=== PATIENT | female | born 1980 | race African-American/Black ===

== ENCOUNTER 2017-04-09 11:31 | Emergency (ER) | payer OTHER ==
[2017-04-09 11:41] VITALS: BP 137/84; BMI 56.3
--- NOTE | 2017-04-09 11:54 | DR.GENAD ---
HPI - PCP Primary Care Physician: BOUBACAR - HPI Comment HPI Comment: NO FEVER. PATIENT DENIES N/V. FULLY ALERT AND CONSCIOUS IN ED. - Complaint/Symptoms Chief Complaint Doctors Comments: PATIENT SAID HER BOYFRIEND DIANA SHE PASS OUT AND HE CALL 911. COMPLAINIG OF HEADACHE. HISTORY SEIZURE EPISODE ONE IN THE PASS. SHE WAS SHAKING PER HER BOYFRIEND. SHE FELL AND HIT HER HEAD THIS MORNING. Chief Complaint:: patient stated she fell this morning by her bed and landed on the back of her head. - Nurses notes reviewed Nurses Notes Review: Yes - Source History Provided: Patient - Mode of Arrival Mode of Arrival: EMS - Timing Onset of Chief Complaint: 04/09/17 Came on: Suddenly - Duration Duration: Since Onset Duration: Minutes - Severity Severity: Moderate PMH - PMH Past Medical History: Yes Past Medical History: CHF, Coronary Artery Disease, GERD, Hypertension Past Surgical History: Yes Surgical History: [employer] Surgery, Hysterectomy - Family History History of Family Medical Conditions: Yes Family Medical History: Hypertension - Social History Does patient currently use any type of tobacco product: Yes Have you used tobacco products in the last 12 months: Yes Type of Tobacco Use: Cigarettes How many years tobacco product used: 20 Does any household member use tobacco: Yes Alcohol Use: None Do you use any recreational Drugs:: No Lives With: Family Lives Where: Home - infectious screening In the last 2 months have you had wt loss of >10#?: NO Have you had fever, night sweats or hemotysis?: No Have you traveled outside the country in the last 6 months?: No Isolation: Standard ROS - Review of Systems Constitutional: Weakness, Fatigue. negative: Chills, Fever Eyes: Blurred Vision ENTM: No Symptoms Reported. negative: Ear Pain, Nose Discharge, Nose Congestion , Throat Pain Respiratoy: Short of Breath. negative: Productive Cough, Non-Productive Cough, Wheezing, Hemoptysis Cardiovascular: No Symptoms Reported. negative: Chest Pain, Edema, Palpitations Gastrointestinal/Abdominal: negative: Abdominal Pain, Nausea, Vomiting Genitourinary: negative: Dysuria, Frequency, Hematuria Neurological: Headache, Weakness, Dizziness Musculoskeletal: Muscle Pain Hematologic/Lymphatic: No Symptoms Reported Endocrine: No Symptoms Reported All Other Systems: Reviewed and Negative PE - Vital Signs Vitals: Temperature 98.1 F Pulse Rate 78 Respiratory Rate 16 Blood Pressure 137/84 O2 Sat by Pulse Oximetry 99 - General Limitations: No Limitations General Appearance: Alert - Head Head Exam: Normal Inspection - Eyes Eye exam: Normal Appearance - ENT ENT Exam: Normal External Ear Exam External Ear Exam: Normal External Inspection TM/Canal Exam: Bilateral Normal Nose Exam: Normal Nose Exam Mouth Exam: Normal Inspection Throat Exam: Normal Inspection - Neck Neck Exam: Normal Inspection, Trachea Midline - Chest Chest Inspection: Symmetric Chest Wall Rise - Respiratory Respiratory Exam: Normal Lung Sounds Bilat Respiratory Exam: Bilateral Clear to Auscultation - Cardiovascular Cardiovascular Exam: Regular Rate, Normal Rhythm, Normal Heart Sounds - Abdominal Exam Abdominal Exam: Normal Bowel Sounds, Soft. negative: Tenderness - Extremities Extremities Exam: Normal Inspection - Back Back Exam: Normal Inspection - Neurologic Neurological Exam: Alert, Oriented X3, CN II-XII Intact, Normal Gait, Reflexes Normal. negative: Motor Sensory Deficit - Psychiatric Psychiatric Exam: Normal Affect, Normal Mood - Skin Skin Exam: Normal Color MDM - Additional Information Additional Information Obtained From: Family - Differential Diagnosis Differential Diagnosis: AMS, SYNCOPAL EPISODE, SEIZURE, NH, CVA, TIA Course - Treatment Treatment: SEE ORDERS. - Education/Counseling Education/Counseling: Patient, Family, Education Educated On: Diagnosis, Needs for Follow Up ROR - Labs Reviewed Laboratory Results Reviewed?: Yes Result Diagrams: 04/09/17 12:00 04/09/17 12:00 Laboratory: WBC 14.2 X10^3/uL (3.6-10.0) H 04/09/17 12:00 RBC 5.20 X10^6/uL (3.5-5.4) 04/09/17 12:00 Hgb 13.3 g/dL (12.0-16.0) 04/09/17 12:00 Hct 39.8 % (36.0-47.0) 04/09/17 12:00 MCV 76.5 fL (80.0-100.0) L 04/09/17 12:00 MCH 25.5 pg (27.0-34.0) L 04/09/17 12:00 MCHC 33.4 g/dL (33.0-35.0) 04/09/17 12:00 RDW 16.9 % (11.6-16.5) H 04/09/17 12:00 Plt Count 251 X10^3/uL (150.0-450.0) 04/09/17 12:00 Plt Count Comment Adequate (ADEQUATE) 04/09/17 12:00 MPV 9.0 fL (7.4-11.0) 04/09/17 12:00 Neut % 76.4 % (42.0-75.0) H 04/09/17 12:00 Lymph % 18.5 % (21.0-51.0) L 04/09/17 12:00 [place] % 2.8 % (0.0-13.0) 04/09/17 12:00 Eos % 1.7 % (0.9-2.9) 04/09/17 12:00 Baso % 0.6 % (0.2-1.0) 04/09/17 12:00 Neut # 10.9 x10^3/uL (2.2-4.8) H 04/09/17 12:00 Lymph # 2.6 X10^3/uL (1.3-2.9) 04/09/17 12:00 [place] # 0.4 x10^3/uL (0.3-0.8) 04/09/17 12:00 Eos # 0.2 x10^3/uL (0.0-0.2) 04/09/17 12:00 Baso # 0.1 X10^3/uL (0.0-0.1) 04/09/17 12:00 Absolute Nucleated RBC 0.5 /100WBC 04/09/17 12:00 Plt Morphology Comment Normal (NORMAL) 04/09/17 12:00 RBC Morphology Normal (NORMAL) 04/09/17 12:00 Sodium 137 mmol/L (136-145) 04/09/17 12:00 Corrected Sodium 138 mmol/L (136-145) 04/09/17 12:00 Potassium 3.6 mmol/L (3.5-5.1) 04/09/17 12:00 Chloride 106 mmol/L (98-107) 04/09/17 12:00 Carbon Dioxide 25.4 mmol/L (21-32) 04/09/17 12:00 BUN 7 mg/dL (7-18) 04/09/17 12:00 Creatinine 0.79 mg/dL (0.55-1.02) 04/09/17 12:00 Est GFR (MDRD) Af Amer > 60 (>60) 04/09/17 12:00 Est GFR (MDRD) Non-Af > 60 (>60) 04/09/17 12:00 Glucose 135 mg/dL (65-99) H 04/09/17 12:00 Calcium 8.6 mg/dL (8.5-10.1) 04/09/17 12:00 Corrected Calcium 9.3 mg/dL (8.5-10.1) 04/09/17 12:00 Magnesium 2.0 mg/dL (1.7-2.9) 04/09/17 12:00 Total Bilirubin 0.40 mg/dL (0.2-1.0) 04/09/17 12:00 AST 22 Units/L (15-37) 04/09/17 12:00 ALT 27 Units/L (12-78) 04/09/17 12:00 Alkaline Phosphatase 98 Units/L (46-116) 04/09/17 12:00 Creatine Kinase 111 Units/L (26-192) 04/09/17 12:00 CK-MB (CK-2) < 1.0 ng/mL (0-4.0) 04/09/17 12:00 CK/CKMB % Calc 0.9 % (<4) 04/09/17 12:00 Troponin I 0.02 ng/mL (0-1.5) 04/09/17 12:00 Total Protein 7.6 g/dL (6.4-8.2) 04/09/17 12:00 Albumin 3.1 g/dL (3.4-5.0) L 04/09/17 12:00 Globulin 4.5 g/dL (2.5-4.5) 04/09/17 12:00 Albumin/Globulin Ratio 0.7 Ratio (1.1-2.1) L 04/09/17 12:00 Specimen Type Clean catch urine 04/09/17 12:13 Urine Color Yellow (YELLOW) 04/09/17 12:13 Urine Appearance Hazy (CLEAR) 04/09/17 12:13 Urine pH 5.0 (5.0 - 8.0) 04/09/17 12:13 Ur Specific [place] 1.025 (1.000-1.030) 04/09/17 12:13 Urine Protein 2+ (NEGATIVE) 04/09/17 12:13 Urine Glucose (UA) Negative (NEGATIVE) 04/09/17 12:13 Urine Ketones 1+ (NEGATIVE) 04/09/17 12:13 Urine Occult Blood 1+ (NEGATIVE) 04/09/17 12:13 Urine Nitrite Negative (NEGATIVE) 04/09/17 12:13 Urine Bilirubin Negative (NEGATIVE) 04/09/17 12:13 Urine Urobilinogen Normal (NORMAL) 04/09/17 12:13 Ur Leukocyte Esterase 1+ (NEGATIVE) 04/09/17 12:13 Urine RBC 0 - 2 /HPF (NEGATIVE) 04/09/17 12:13 Urine WBC 0 - 4 /HPF (NEGATIVE) 04/09/17 12:13 Ur Squamous Epith Cells Many /HPF (NEGATIVE) 04/09/17 12:13 Amorphous Sediment 2+ /HPF (NEGATIVE) 04/09/17 12:13 Urine Bacteria Trace /HPF (NEGATIVE) 04/09/17 12:13 Hyaline Casts Rare /LPF (NEGATIVE) 04/09/17 12:13 Urine Mucus Moderate /HPF (NEGATIVE) 04/09/17 12:13 Ur Culture Indicated? No/not indicated 04/09/17 12:13 Urine Opiates Screen Negative (NEG=<300) 04/09/17 12:13 Urine Methadone Screen Negative (NEG=<300) 04/09/17 12:13 Ur Barbiturates Screen Negative (NEG=<200) 04/09/17 12:13 Ur Phencyclidine Scrn Negative (NEG=<25) 04/09/17 12:13 Ur Amphetamines Screen Negative (NEG=<1000) 04/09/17 12:13 U Benzodiazepines Scrn Negative (NEG=<200) 04/09/17 12:13 Urine Cocaine Screen Negative (NEG=<300) 04/09/17 12:13 U Marijuana (THC) Screen Negative (NEG=<50) 04/09/17 12:13 - XRAY XRAY Interpreted by: Radiologist XRAY Findings: REPORT DISCUSS WITH PATIENT. - EKG Rhythm: NSR (EKG NOTED.) - Diagnosis Discharge Problem: Seizure Syncopal episodes Qualifiers: Syncope type: unspecified Qualified Code(s): R55 - Syncope and collapse - Discharge Plan Disposition: 01 HOME, SELF-CARE Condition: Stable - Follow ups/Referrals Follow ups/Referrals: Karla HAMLIN [Primary Care Provider] - 3 days AGUSTINA LYONS [STAFF PHYSICIAN] - 3 days - Instructions Instructions: Seizure, Adult, [id number], Syncope, [id number]
[2017-04-09 12:15] LABS: BASOPHILS # (AUTO) 0.1 X10^3/uL (0.0-0.1); BASOPHILS % (AUTO) 0.6 % (0.2-1.0); EOSINOPHILS # (AUTO) 0.2 x10^3/uL (0.0-0.2); EOSINOPHILS % (AUTO) 1.7 % (0.9-2.9); HEMATOCRIT 39.8 % (36.0-47.0); HEMOGLOBIN 13.3 g/dL (12.0-16.0); LYMPHOCYTES # (AUTO) 2.6 X10^3/uL (1.3-2.9); LYMPHOCYTES % (AUTO) 18.5 % (21.0-51.0); MEAN CORPUSCULAR HEMOGLOBIN 25.5 pg (27.0-34.0); MEAN CORPUSCULAR HGB CONC 33.4 g/dL (33.0-35.0); MEAN CORPUSCULAR VOLUME 76.5 fL (80.0-100.0); MONOCYTES # (AUTO) 0.4 x10^3/uL (0.3-0.8); MONOCYTES % (AUTO) 2.8 % (0.0-13.0); NEUTROPHILS # (AUTO) 10.9 x10^3/uL (2.2-4.8); NEUTROPHILS % (AUTO) 76.4 % (42.0-75.0); PLATELET COUNT 251 X10^3/uL (150.0-450.0); RED CELL DISTRIBUTION WIDTH 16.9 % (11.6-16.5); WHITE BLOOD COUNT 14.2 X10^3/uL (3.6-10.0)
[2017-04-09 12:21] LABS: PLATELET MORPHOLOGY COMMENT NORMAL (NORMAL)
[2017-04-09] MEDS ORDERED: TORADOL 30 MG VIAL IVP ONE (12:25)
[2017-04-09] MEDS ORDERED: TORADOL 30 MG VIAL ONE (12:25)
[2017-04-09 12:26] LABS: BLOOD UREA NITROGEN 7 mg/dL (7-18); CALCIUM 8.6 mg/dL (8.5-10.1); CARBON DIOXIDE 25.4 mmol/L (21-32); CHLORIDE 106 mmol/L (98-107); COR NA(FOR HYPERGLY) 138 mmol/L (136-145); CREATININE 0.79 mg/dL (0.55-1.02); SODIUM 137 mmol/L (136-145); TROPONIN I 0.02 ng/mL (0-1.5); eGFR BLACK RACES > 60 (>60); eGFR NON BLACK RACES > 60 (>60)
[2017-04-09 12:30] LABS: ALANINE AMINOTRANSFERASE 27 Units/L (12-78); ALBUMIN 3.1 g/dL (3.4-5.0); ALKALINE PHOSPHATASE 98 Units/L (46-116); ASPARTATE AMINO TRANSFERASE 22 Units/L (15-37); CKMB % 0.9 % (<4); COR CA(FOR HYPOALB) 9.3 mg/dL (8.5-10.1); CREATINE KINASE 111 Units/L (26-192); CREATINE KINASE MB < 1.0 ng/mL (0-4.0); TOTAL PROTEIN 7.6 g/dL (6.4-8.2)
[2017-04-09 12:37] LABS: BILIRUBIN,URINE NEGATIVE (NEGATIVE); BLOOD/HEMOGLOBIN,URINE 1+ (NEGATIVE); GLUCOSE, URINE NEGATIVE (NEGATIVE); KETONES,URINE 1+ (NEGATIVE); LEUKOCYTE ESTERASE ,URINE 1+ (NEGATIVE); NITRITES,URINE NEGATIVE (NEGATIVE); PROTEIN,URINE 2+ (NEGATIVE); UROBILINOGEN,URINE NORMAL (NORMAL)
--- NOTE | 2017-04-09 12:48 | RAD ---
Chest, one view Indication: Chest pain Comparison: None Findings: Heart size is normal for AP technique. No focal consolidation, effusion or pneumothorax is identified. Osseous thorax is unremarkable. Impression: No acute chest process. Reported By:
[2017-04-09 12:49] LABS: APPEARANCE,URINE HAZY (CLEAR); COLOR,URINE YELLOW (YELLOW); RBC,URINE 0 - 2 /HPF (NEGATIVE)
[2017-04-09 12:50] LABS: AMORPHOUS SEDIMENT,UR 2+ /HPF (NEGATIVE); BACTERIA,URINE TRACE /HPF (NEGATIVE); HYALINE CASTS, URINE RARE /LPF (NEGATIVE); SQUAMOUS EPITHELIAL CELL,UR MANY /HPF (NEGATIVE)
[2017-04-09 12:51] LABS: MUCUS,URINE MODERATE /HPF (NEGATIVE)
--- NOTE | 2017-04-09 13:10 | CT ---
HISTORY: Altered mental status Study: CT brain without contrast Comparison: None Technique: Multiple axial images of the brain were obtained from the skull base to the vertex without administra tion of IV contrast. Coronal and sagittal reformats were performed. Dose reduction procedures were us ed with MA/kv adjusted for body size. Findings: No acute intraparenchymal hemorrhage or mass can be identified. No extra-axial fluid collections are seen. No alteration in the attenuation of the brain parenchyma can be identified to suggest acute o r subacute ischemic change. The ventricular system is symmetric and nondilated. The extracranial st ructures are grossly unremarkable. incidental note is made of an empty sella. The calvarium is intact . IMPRESSION: 1. No significant intracranial abnormality Reported By:
== END 2017-04-09 14:25 | disposition home or self-care (01) ==
LOC: ER 11:39
DX: R56.9 Unspecified convulsions (principal); R55 Syncope and collapse; W19.XXXA Unspecified fall, initial encounter
CPT/HCPCS: 36415; 70450; 71010; 80053; 80307; 81001; 82550; 82553; 83735; 84484; 85025; 93005; 93010; 96374; 99283; A4222; G0434; J1885

== ENCOUNTER → 2017-06-17 | Outpatient (CLI) | payer OTHER | LOC: RT 10:12 | PROVIDERS: ATTEND Psychiatry & Neurology Neurology | DX: G40.909 Epilepsy, unspecified, not intractable, without status epilepticus (principal) | CPT/HCPCS: 95819 ==